=== PATIENT | female | born 1970 ===

== ENCOUNTER 2025-02-01 06:00 | Day surgery (SDC) | payer OTHER ==
[2025-01-24 08:54] LABS: BASO % 0.8 % (0.1-1.2); EOS # 0.17 (0.04-0.54); EOS % 2.7 % (0.7-7.0); LYMPH # 2.02 (1.18-3.74); LYMPH % 31.9 % (19.3-53.1); MEAN PLATELET VOLUME 9.90 fl (9.4-12.4); MONO # 0.35 (0.24-0.82); MONO % 5.5 % (4.7-12.5); NEUT # 3.74 (1.56-6.13); NEUT % 58.9 % (34.0-71.1); RED CELL DISTRIBUTION WIDTH 14.6 % (11.6-14.4)
[2025-01-24 08:55] LABS: URINE APPEARANCE Clear; URINE BILIRRUBIN Negative (NEGATIVE); URINE BLOOD Negative; URINE COLOR Yellow; URINE GLUCOSE Negative (NEGATIVE); URINE KETONE Negative (NEGATIVE); URINE LEUKOCYTE Negative; URINE NITRATE Negative; URINE PROTEIN Negative (NEGATIVE); URINE UROBILINOGEN 0.2 E.U./dl
[2025-01-24 08:56] LABS: URINE BACTERIA 4.7 uL (0.0-1933); URINE EPITHELIAL CELLS 3.9 uL (0.0-38.8); URINE RBC 8.9 uL (0.0-20.8)
[2025-01-24 08:58] LABS: URINE CAST 0.00 uL (0.0-1.40); URINE WBC 1.0 uL (0.0-23.2)
[2025-01-24 09:02] VITALS: BP 123/84
[2025-01-24 10:04] LABS: INR 1.0
[2025-01-24 10:07] LABS: ALT/SGPT 24.0 U/L (12-78); AST/SGOT 14.0 U/L (15-37); BILIRUBIN TOTAL 0.74 mg/dL (0.3-1.2); BUN CREA RATIO 25.0 (7.0-25.0); CREATININE SERUM 0.61 mg/dL (0.55-1.02); GFR 102.99; GLOBULINA 3.6 G/DL (2.4-3.5); GLUCOSE FASTING 92.0 mg/dL (65-100); OSMOLALITY SERUM 287.0 MOSM/KG (275-295)
[~2025-02-01] VITALS: Ht 167.6 cm; Wt 84.8 kg
[~2025-02-01 06:00] MED LIST: ZESTRIL10 M1 PO
[2025-02-01] MEDS ORDERED: BUPIVACAINE HCL 30 ML VIAL IJ SCH (08:00)
[2025-02-01] MEDS ORDERED: LIDOCAINE HCL 1%/EPINEPHRINE 20ML VIAL IJ SCH (08:00)
[2025-02-01] MEDS ORDERED: CEFAZOLIN SODIUM 1,000 MG VIAL IV SCH (08:00)
[2025-02-01] MEDS ORDERED: ACETAMINOPHEN325 M1 PO (08:26)
[2025-02-01] MEDS ORDERED: BACTRIM DS TAB1 EACH PO (08:28)
== END 2025-02-01 11:15 | disposition home or self-care (01) ==
LOC: CIR.AMB 06:00
PROVIDERS: ATTEND Surgery
DX: D17.1 Benign lipomatous neoplasm of skin and subcutaneous tissue of trunk (principal); D49.0 Neoplasm of unspecified behavior of digestive system